=== PATIENT | female | born 2000 | race Caucasian/White ===

== ENCOUNTER 2023-10-06 10:05 | Inpatient (IN) | payer OTHER ==
[~2023-10-06] VITALS: Ht 149.9 cm; Wt 48.1 kg
[2023-10-06 14:05] VITALS: BP 124/84; PULSE 108; RESP 16; TEMP 98; O2SAT 100
[2023-10-06] MEDS ORDERED: acetaminophen 325mg tablet PO PRN ×2 (14:10)
[2023-10-06] MEDS ORDERED: mag hydrox/Alum hydrox/simeth 30ml oral suspension PO PRN (14:10)
[2023-10-06] MEDS ORDERED: loperamide 2mg capsule PO PRN (14:10)
--- NOTE | 2023-10-06 14:59 | NUR ---
ADMIT NOTE: Pt admitted to [facility] from [facility]. Pt ambulated onto the unit accompanied by [employer] and security @2446. Pt on a 5150 for GD. Pt impulsively left her home in the [place] and ended up at the [employer] in [place]. She was acting paranoid, she was disorganized, she did not know how she had gotten there. Possible past history of Bipolar Disorder per record. Addendum: 10/06/23 at 1530 by Luna Blanc RN (Lee) CORRECTION: PT ADMITTED AT 1345 NOT 1545.
[2023-10-06 17:10] VITALS: RESP 16; O2SAT 100
[2023-10-06] MEDS ORDERED: LORA-269 PO (18:20)
[2023-10-06] MEDS ORDERED: HYDR-3927 PO (18:20)
[2023-10-06] MEDS ORDERED: RISP1TAB98 PO (18:20)
[2023-10-06 19:00] VITALS: RESP 16; O2SAT 100
[2023-10-06] MEDS ORDERED: hydrOXYzine 25 MG tablet PO PRN (19:20)
[2023-10-06 20:00] VITALS: BP 118/76; PULSE 104; RESP 16; TEMP 98.6
[2023-10-06] MEDS: risperiDONE 0.5mg tablet PO SCH (20:22)
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
[2023-10-07] MEDS: risperiDONE 0.5mg tablet PO SCH ×2 (07:25→20:20)
[2023-10-07 07:30] VITALS: BP 120/75; PULSE 120; RESP 14; TEMP 97.9; O2SAT 99
[2023-10-07] MEDS: magnesium hydroxide 30ml (MOM) UD suspension PO PRN (09:14)
[2023-10-07] MEDS: LORazepam 1 MG tablet PO PRN (09:14)
--- NOTE | 2023-10-07 09:14 | NUR ---
Father Fredy [phone] home phone #
--- NOTE | 2023-10-07 09:46 | NUR ---
Father Fredy [facility] [address] # [phone]
--- NOTE | 2023-10-07 13:39 | NUR ---
5250 upheld for GD
[2023-10-07 15:34] LABS: CHOL/HDL RATIO 4.7 (0.00-4.99); CHOLESTEROL 184 MG/DL (0-200); HDL CHOLESTEROL 39 MG/DL (35-60); LDL CHOLESTEROL 117 MG/DL (50-100); TRIGLYCERIDES 83 MG/DL (20-135)
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
[2023-10-07 19:00] VITALS: RESP 14; O2SAT 99
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
[2023-10-08] MEDS: LORazepam 1 MG tablet PO PRN (06:05)
[2023-10-08 07:30] VITALS: BP 104/61; PULSE 104; RESP 14; TEMP 97.9; O2SAT 100
[2023-10-08] MEDS: risperiDONE 0.5mg tablet PO SCH ×2 (07:40→20:20)
[2023-10-08] MEDS: magnesium hydroxide 30ml (MOM) UD suspension PO PRN (12:25)
[2023-10-08] MEDS ORDERED: docusate sod 100mg capsule PO ONE (13:55)
--- NOTE | 2023-10-08 17:44 | NUR ---
Nursing Progress Note: Problem: Pt admitted to [facility] from [facility]. Pt on a 5150 for GD. Pt impulsively left her home in the [place] Area and ended up at the [employer] in [place]. She was acting paranoid, she was disorganized, she did not know how she had gotten there. Possible past history of Bipolar Disorder per record. Interventions : Introduced self and attempted to established rapport, maintained a safe and supportive environment, provided clear and simple instructions, maintained orientation to reality, monitored behavior and provided redirection as needed, administered scheduled and PRN medications and maintained Q 15min safety checks. Response: RN received pt. asleep in bed at start of shift. Pt. awoke and refused breakfast but took her AM medication. 1:1 done at bedside, pt. denies all psych symptoms, pt. states, Im feeling better after the Ativan I got this morning but I just dont want to talk. Pt. denies SI/HI, A/V hallucinations. Pt. c/o constipation and received milk of magnesia as well as Colace 100mg. Pt. isolated to her room most of the day, observed resting awake in bed. In the evening pt. observed sitting in the day room socializing with peers. Plan: Pt. requires interruption of current crisis, medication adjustments, and a safe and supportive environment.
[2023-10-08 20:00] VITALS: BP 128/94; PULSE 121; RESP 18; TEMP 97.7; O2SAT 99
[2023-10-08] MEDS: docusate sod 100mg capsule PO SCH (20:19)
--- NOTE | 2023-10-09 00:21 | NUR ---
Nursing Progress Note: Lorraine Problem: Pt admitted to [facility] from [facility]. Pt on a 5150 for GD. Pt impulsively left her home in the [place] and ended up at the [employer] in [place]. She was acting paranoid, she was disorganized, she did not know how she had gotten there. Possible past history of Bipolar Disorder per record. Interventions : Introduced self and attempted to established rapport, maintained a safe and supportive environment, provided clear and simple instructions, maintained orientation to reality, monitored behavior and provided redirection as needed, administered scheduled and PRN medications and maintained Q 15min safety checks. Response: RN received pt. lying in her bed resting. Pt states she had a good day, has fair eye contact and is soft spoken. She is smiling and is polite. She states she wants to play a game in the community room and was encouraged to go. Later, Pt observed to be in the community room playing games with peers. Pt stayed for snacks and took all HS medications. Plan: Pt. requires interruption of current crisis, medication adjustments, and a safe and supportive environment.
[2023-10-09 07:00] VITALS: RESP 16; O2SAT 99
[2023-10-09 08:00] VITALS: BP 109/78; PULSE 106; RESP 16; TEMP 98.5; O2SAT 99
[2023-10-09] MEDS: docusate sod 100mg capsule PO SCH ×2 (08:23→20:06)
[2023-10-09] MEDS: risperiDONE 0.5mg tablet PO SCH ×2 (08:23→20:07)
[2023-10-09] MEDS ORDERED: ondansetron 4mg rapidly disintigrating tab PO PRN (09:45)
--- NOTE | 2023-10-09 14:46 | NUR ---
DISCHARGE PLANNING Spoke to Lorraine's dad, Fredy (ph# [phone]). He plans on taking [employer] to [place] to order picker/assembler the car and then drive to [place] to order picker/assembler Lorraine. He reported he may do this tomorrow. Encouraged him to stay the night in [place] before driving to [place]. He reported he will call and let director social welfare know what his plans are and when he intends to arrive in [place]. MICHAEL Multani
--- NOTE | 2023-10-09 17:13 | NUR ---
Nursing Progress Note: Problem: Pt admitted to [facility] from [facility]. Pt on a 5150 for GD. Pt impulsively left her home in the [place] and ended up at the [employer] in [place]. She was acting paranoid, she was disorganized, she did not know how she had gotten there. Possible past history of Bipolar Disorder per record. Interventions : Introduced self and attempted to established rapport, maintained a safe and supportive environment, provided clear and simple instructions, maintained orientation to reality, monitored behavior and provided redirection as needed, administered scheduled and PRN medications and maintained Q 15min safety checks. Response: Received pt awake in her room. Pt took a shower first thing this morning. Pt ate breakfast in the community room and took morning medications cooperatively. Pt states she thinks when she feels overwhelmed that she starts to get nauseous. Pt states she would rather have an anti-nausea med than an anti-anxiety med. PA notified, Zofran ordered, given with good effect. Performed 1:1 bedside. Pt denies SI/HI and AVH. Pt ate all meals in the community room. Pt appearance is well groomed. Active on the unit. Calm and cooperative with staff. Plan: Pt. requires interruption of current crisis, medication adjustments, and a safe and supportive environment.
[2023-10-09 20:00] VITALS: BP 130/81; PULSE 101; RESP 18; TEMP 97.7; O2SAT 99
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
[2023-10-10 07:00] VITALS: RESP 12; O2SAT 100
[2023-10-10] MEDS: docusate sod 100mg capsule PO SCH ×2 (07:04→19:52)
[2023-10-10] MEDS: risperiDONE 0.5mg tablet PO SCH ×2 (07:04→19:52)
[2023-10-10 08:00] VITALS: BP 101/62; PULSE 105; RESP 12; TEMP 97.8; O2SAT 100
--- NOTE | 2023-10-10 09:26 | NUR ---
Initial: Pt admit for psychosis. Currently on a regular diet with fluctuating PO intake averaging 60% PO intake d/t refusal of two meals. Average meal intake meets 100% estimated nutrient needs. [facility] 10/09, pt receiving routine and PRN bowel care. No nutrition intervention warranted at this time. Will continue to follow and make recommendations as appropriate. Recommendations: 1) Continue regular diet 2) Routine bowel care 3) Weekly scaled weights Addendum: 10/10/23 at [address] Amended: Links added.
[2023-10-10] MEDS: magnesium hydroxide 30ml (MOM) UD suspension PO PRN (14:52)
[2023-10-10] MEDS ORDERED: HYDR-3927 PO (14:58)
[2023-10-10] MEDS ORDERED: RISP2TAB52 PO (14:58)
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
[2023-10-10 19:00] VITALS: RESP 14; O2SAT 100
[2023-10-10 20:00] VITALS: BP 124/81; PULSE 106; RESP 14; TEMP 99.1; O2SAT 100
--- NOTE | 2023-10-11 02:10 | NUR ---
Nursing Progress Note: Problem : Pt admitted to [facility] from [facility]. Pt on a 5150 for GD. Pt impulsively left her home in the [place] and ended up at the [employer] in [place]. She was acting paranoid, she was disorganized, she did not know how she had gotten there. Possible past history of Bipolar Disorder per record. Interventions : Introduced self and established rapport, maintained a safe and supportive environment, ensured contract for safety, provided clear and simple instructions, provided active listening and positive encouragement, and maintained Q 15min safety checks. Response : This patient is observed in her room and about the unit, she socializes with her peers. 1:1 Interview at bedside. The patient presents in a cooperative but manic state. She speaks rapidly. She is well oriented and makes direct eye contact. She exhibits mild anxiety. The patient denies S/I, H/I, or any hallucinations. Ativan was given for mild anxiety. Trazadone for sleep. Patient denies S/I, H/I, or any hallucinations. Plan : Pt. requires interruption of current crisis and a safe and supportive environment. Addendum: 10/11/23 at 0243 by Dennis Shah RN Ignore this note. Wrong patient.
--- NOTE | 2023-10-11 02:43 | NUR ---
Ignore 0210 hour nursing note. Wrong patient.
--- NOTE | 2023-10-11 02:52 | NUR ---
Nursing Progress Note: Problem : Pt admitted to [facility] from [facility]. Pt on a 5150 for GD. Pt impulsively left her home in the [place] and ended up at the [employer] in [place]. She was acting paranoid, she was disorganized, she did not know how she had gotten there. Possible past history of Bipolar Disorder per record. Interventions : Introduced self and established rapport, maintained a safe and supportive environment, ensured contract for safety, provided clear and simple instructions, provided active listening and positive encouragement, and maintained Q 15min safety checks. Response : This patient was in her room following shift change. She is well oriented, no distress. Patient was out of her room for dinner and snacks. 1:1 Interview at bedside. This patient is well oriented, she is cooperative, she makes good eye contact. The patient speaks in a quiet voice. She denies S/I, H/I, or any hallucinations. The patient plans on discharging later today. The patient states she plans to make better life choices, as far as friends are concerned. The patient speaks in a quiet voice. She makes good eye contact. Her voice is quiet. She speaks in a regular rhythm, rate, and tone. She was compliant with all medications. She presented in a good mood. Plan : Pt. requires medication adjustments and a safe and supportive environment.
[2023-10-11 07:00] VITALS: RESP 16; O2SAT 98
[2023-10-11] MEDS: docusate sod 100mg capsule PO SCH (08:20)
[2023-10-11] MEDS: risperiDONE 0.5mg tablet PO SCH (08:21)
--- NOTE | 2023-10-11 09:22 | NUR ---
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 She has follow up with her provider at [facility]. MICHAEL Multani
--- NOTE | 2023-10-11 15:03 | NUR ---
Discharge Note: Pt. signed all paperwork and copies were placed in chart. Reviewed medications and recommended f/u tele med appointment. All personal belonging were accounted for and taken at time of DC. Pt. DC'd the unit @1630 and ambulated off the unit without issue.
== END 2023-10-11 14:30 | disposition home or self-care (01) | DRG 885 ==
LOC: ADULT MH 13:47
PROVIDERS: ADMIT Psychiatry & Neurology Psychiatry; ATTEND Psychiatry & Neurology Psychiatry
DX: F31.9 Bipolar disorder, unspecified (principal); F32.9 Major depressive disorder, single episode, unspecified; Z78.1 Physical restraint status; F29 Unspecified psychosis not due to a substance or known physiological condition; F90.9 Attention-deficit hyperactivity disorder, unspecified type; R00.0 Tachycardia, unspecified; F41.9 Anxiety disorder, unspecified; Z63.4 Disappearance and death of family member; Z80.9 Family history of malignant neoplasm, unspecified
CPT/HCPCS: 36415; 80061; 83036; 87081; Q0177